=== PATIENT | female | born 1970 | race Caucasian/White ===

== ENCOUNTER 2021-12-08 06:50 | Outpatient (CLI) | payer BC, MEDICAID, SELFPAY ==
--- NOTE | 2021-12-08 | US_ITS ---
WS: [id number] ULTRASOUND ABDOMEN LIMITED CLINICAL INFORMATION: RUQ PAIN, BLOATING, NAUSEA COMPARISON: None. FINDINGS: Liver Size: Normal. Craniocaudal length: 15.6 cm. Echogenicity: Normal. Surface nodularity: None. Mass (size and location): None. Bile ducts Intrahepatic ducts: Normal. Common bile duct diameter: 0.4 cm. Gallbladder Normal. Gallstones: None. Gallbladder sludge: None. Gallbladder wall thickening: None. Pericholecystic fluid: None. Sonographic Kuo sign: Absent. Pancreas Normal as visualized. Right kidney: Normal. Hydronephrosis: None. Size: 10.9 cm x 5.4 cm x 4.3 cm. Abdominal aorta and IVC Visualized portions are normal. Ascites: None. US/US gall bladder 36090 IMPRESSION: Normal RIGHT upper quadrant ultrasound.
== END 2021-12-08 06:51 | disposition home or self-care (01) ==
LOC: RAD 06:50
PROVIDERS: PCP Nurse Practitioner Family; Visit Provider Nurse Practitioner Family
DX: R10.11 Right upper quadrant pain (principal); R14.0 Abdominal distension (gaseous); R11.0 Nausea
CPT/HCPCS: 76705

== ENCOUNTER 2022-01-19 07:31 | Outpatient (CLI) | payer BC, MEDICAID, SELFPAY ==
--- NOTE | 2022-01-19 07:41 | NM_ITS ---
WS: [id number] NUCLEAR MEDICINE HIDA SCAN WITH GALLBLADDER EJECTION FRACTION HISTORY: RUQ DISCOMFORT, BLOATING COMPARISON: Gallbladder ultrasound 12/08/2021 TECHNIQUE: The patient was intravenously injected with 8.3 mCi of TC99m Mebrofenin. Immediate imaging over the right upper quadrant was followed by 5 minute image and additional images for a total of 60 minutes. Normal uptake of radiotracer throughout the liver. Activity identified in the gallbladder at 10 minutes and well distended by 60 minutes. Activity in the proximal small bowel was seen by 30 minutes. Good washout of the radiotracer from the liver by 60 minutes. The patient then drank 8 ounces of Ensure Plus. Ejection fraction at 60 minutes was 72%. Normal GB ej ection fraction is 35-75%. Post fatty meal symptoms: None. NM/NM hepatobiliary w phar* [id number] IMPRESSION: 1. Normal HIDA scan. 2. Normal gallbladder ejection fraction.
== END 2022-01-19 07:32 | disposition home or self-care (01) ==
LOC: RAD 07:33
PROVIDERS: PCP Nurse Practitioner Family; Visit Provider Nurse Practitioner Family
DX: R10.11 Right upper quadrant pain (principal); R14.0 Abdominal distension (gaseous)
CPT/HCPCS: 78227; A9537

== ENCOUNTER 2023-06-28 10:45 | Outpatient (CLI) | payer BC, MEDICAID, SELFPAY ==
--- NOTE | 2023-06-28 10:50 | CT_ITS ---
WS: [id number] CT NECK TECHNIQUE: Contrast-enhanced CT of the neck with coronal and sagittal reformatted images. CLINICAL INFORMATION: CHRONIC LARYNGITIS/HYPERTROPHY OF TONSILS/OTALGIA, L EAR COMPARISON: None. DLP: 213.[address] scans at [facility] use at least one of these dose optimization techniques: automated e xposure control; mA and/or kV adjustment per patient size (includes targeted exams where dose is matc hed to clinical indication); or iterative reconstruction. FINDINGS: Prominent enhancing [place] tonsils. No evidence of peritonsillar abscess or fluid collection. No ev idence of retropharyngeal abscess. Normal posterior nasopharynx. Normal parapharyngeal fat. Parotid g lands are normal. Normal submandibular glands. No evidence of supraglottic or glottic mass. Normal luther bglottic airway. Thyroid gland is normal. Slight hazy atelectasis in the lung apices. Partially visualized paranasal sinuses are well aerated. Mastoid air cells are well aerated. Tortuous RIGHT common carotid artery and cervical ICA with a retr opharyngeal course. Parotid glands are normal. Normal submandibular glands. Moderate spondylitic jimenez ges. Reversal of the normal cervical lordosis. Slight anterolisthesis C2 on C3. Mild disc osteophyte protrusions in the mid cervical spine worse at C3-C4. Prominent LEFT jugulodigastric lymph node. No c ervical lymphadenopathy. IMPRESSION: 1. Enlarged enhancing palatine tonsils. No evidence of retropharyngeal or peritonsillar abscess. 2. No evidence of supraglottic or glottic mass. 3. No cervical lymphadenopathy. 4. Retropharyngeal course RIGHT cervical ICA. 5. No cervical lymphadenopathy. 6. Moderate spondylitic changes cervical spine.
[2023-06-28] MEDS: iohexol 350 mg/mL 500 mL Btl (per mL) IV (11:09)
== END 2023-06-28 10:46 | disposition home or self-care (01) ==
LOC: RAD 10:45
PROVIDERS: PCP Family Medicine; Visit Provider Otolaryngology
DX: J37.0 Chronic laryngitis (principal); J35.1 Hypertrophy of tonsils; H92.02 Otalgia, left ear
CPT/HCPCS: 70491; Q9967